=== PATIENT | male | born 1945 | race Caucasian/White ===

== ENCOUNTER 2020-05-23 05:18 | Day surgery (SDC) | payer MEDICARE, OTHER ==
[2020-05-23] MEDS ORDERED: Nozin Nasal Sanitizer NASBOTH ONE (06:00)
[2020-05-23] MEDS ORDERED: Lactated Ringers 1,000 ML IV SCH (06:00)
[2020-05-23] MEDS ORDERED: Bupivacaine 0.5% 50 ML MDV ONE (06:48)
[2020-05-23] MEDS ORDERED: Propofol 200 MG/20 ML SDV ONE ×2 (07:41→08:56)
[2020-05-23] MEDS ORDERED: Midazolam 1 MG/ML 2 ML SDV ONE ×2 (07:41→09:48)
[2020-05-23] MEDS ORDERED: fentaNYL 100 MCG/2 ML SDV ONE (07:41)
[2020-05-23] MEDS ORDERED: Bupivacaine 0.5% 30 ML SDV ONE (07:43)
--- NOTE | 2020-05-31 20:04 | OR ---
DATE OF PROCEDURE: 05/23/2020 SURGEON: Daniele Boogie MD PREOPERATIVE DIAGNOSES: 1. Impingement, right shoulder. 2. Rotator cuff tear, left shoulder. POSTOPERATIVE DIAGNOSES: 1. Degenerative labral tear. 2. Partial subscapularis tear. 3. Biceps tendinopathy. 4. Massive rotator cuff tear. PROCEDURES: 1. Arthroscopy, left shoulder, with debridement of labrum and biceps tendon. 2. Open rotator cuff repair, supraspinatus. ANESTHESIA: Scalene block with sedation. INDICATIONS: Mr. Skip White is a 74-year-old gentleman with history of chronic left shoulder pain. Pain has been getting progressively worse over the past few months. Having increasing difficulty with reaching and overhead activities. He is still quite active, but the pain has not responded to conservative treatment. He now presents for arthroscopy of the left shoulder for evaluation of the rotator cuff and possible repair. Risks, benefits, potential complications of procedure were discussed. DESCRIPTION OF PROCEDURE: After adequate anesthesia was obtained, patient was placed in a lateral decubitus position and secured with a souza bag positioner. The left shoulder and arm were then prepped and draped in a sterile fashion and 10 pounds of traction was placed in the shoulder traction unit. A standard posterior portal was established and initial placement of the trocar went extremely easily indicating deficiency in the posterior musculature and/or capsule. Evaluation of the glenohumeral joint revealed no significant articular cartilage damage to the glenoid or humeral head. The glenoid labrum did show degenerative tear with fraying more superior and anterior. Biceps tendon also showed some mild tendinopathy at its transition into the bicipital groove, but this was fairly mild. Subscapularis showed degenerative tear as well. This was a partial tear consisting of approximately 15% to 20% of the substance of the tendon, and decision was made not to proceed with any repair. Evaluation of rotator cuff revealed a massive tear with retraction of at least the posterior cuff, infraspinatus, back to the level of the glenoid. The portions of the supraspinous were near the level of the glenoid but did extend out a little more laterally. Shaver was placed in the anterior portal and the degenerative labrum was debrided along with a small area of fraying of the biceps. The scope was moved from the joint to the subacromial space. This further delineated the extent of the rotator cuff tear. A grasper was introduced and assessed the mobility of the remaining cuff. A portion of the anterior leaflet and good percentage of the supraspinatus could be mobilized out just beyond the level of the articular surface to the footprint. The infraspinatus could not be mobilized much at all. Elevator was introduced in an attempt to free any adhesions of the cuff in the subacromial space and between the cuff and the glenoid. After doing this, the supraspinatus could be mobilized out slightly more, but there was minimal change with the infraspinatus. Given that a portion of the cuff could be mobilized and the patient's activity level, it was decided to proceed with attempted repair of that portion of the tendon which was available. Due to the size, retraction, and location of the tear, decision was made to switch this over to an open procedure rather than arthroscopic. The scope was withdrawn and the lateral portal was extended down through the skin and deltoid was split in line with its fibers. Self-retaining retractor was placed. The deltoid was taken off the acromion for just a short distance to allow better visualization. The anterior portion of the cuff was identified and this was grasped with a clamp and again could be mobilized out to approximately the middle of the cuff footprint. An attempt was again made to mobilize the infraspinatus, but there was really no mobilization or cuff to work with at that point. A portion of the footprint was lightly decorticated with a rongeur. A FiberWire suture was placed into the edge of the tendon in a locking stitch and used to help mobilize the tendon and position it over the footprint. Two Mitek and Healix anchors were placed. All 4 limbs of the sutures were brought up through the edge of the tendon. The suture was then tied down from anterior to posterior securing the tendon onto the tuberosity. One of the sets of sutures through the tendon and the locking suture through the edge of the tendon were selected to place through a knotless anchor. A second tunnel was placed over the lateral footprint and the knotless anchor was secured in position and the remaining sutures were cut. This created repair of approximately 1/2 of the surface area of the footprint with the supraspinous. Deltoid was then repaired in a [id number] fashion with 0 Vicryl. Skin was closed with 2-0 Vicryl and 3-0 Monocryl. Steri-Strips were applied. Sterile dressing was placed. The patient tolerated the procedure well, there were no complications, taken from the operating room in stable condition. Daniele Boogie MD /[id number] MTDD
== END 2020-05-23 12:05 | disposition home or self-care (01) ==
LOC: JP.SDS 05:18
PROVIDERS: ATTEND Specialist
PROC: 0LM20ZZ Reattachment of Left Shoulder Tendon, Open Approach (ICD-10-PCS; principal; 2020-05-23)
DX: M75.112 Incomplete rotator cuff tear or rupture of left shoulder, not specified as traumatic (principal); M75.52 Bursitis of left shoulder; M25.811 Other specified joint disorders, right shoulder; G89.29 Other chronic pain; I10 Essential (primary) hypertension; E78.5 Hyperlipidemia, unspecified; E66.9 Obesity, unspecified; Z98.890 Other specified postprocedural states; Z68.29 Body mass index [BMI] 29.0-29.9, adult
CPT/HCPCS: 23412; 29822; A9270; C1713; J0690; J2250; J2704; J3010; J3490; J7060; J7120

== ENCOUNTER 2020-06-10 19:22 | Inpatient (IN) | payer MEDICARE, OTHER ==
[2020-06-10] MEDS ORDERED: Pantoprazole 40 MG Vial IVPUSH ONE (19:52)
--- NOTE | 2020-06-10 19:56 | EDM.PDOC ---
ED HPI GENERAL MEDICAL PROBLEM - General Chief Complaint: Gastrointestinal Problem Stated Complaint: MEDICAL Time Seen by Provider: 06/10/20 19:35 Source of Information: Reports: Patient, Family, Provider History Limitations: Reports: No Limitations - History of Present Illness INITIAL COMMENTS - FREE TEXT/NARRATIVE: 74-year-old male who has had dark tarry stools for the past 48 hours, presents with lightheadedness, weakness, shortness of breath with activity and continued dark stools. He has no pain. He had a shoulder surgery over 2 weeks ago and has been taking oxycodone and ibuprofen on a regular basis. Mild nausea but no vomiting, no hematemesis. His surgical hemoglobin was 16, he did go into the clinic today and had a hemoglobin checked and it was 10. Onset: Gradual Duration: Day(s): (Several days) Associated Symptoms: Reports: Malaise, Shortness of Breath (With activity), Weakness. Denies: Fever/Chills denies pain Pain Score (Numeric/FACES): 0 - Related Data Allergies Allergy/AdvReac Type Severity Reaction Status Date / Time No Known Allergies Allergy Verified 06/10/20 19:44 Home Meds: Home Meds Metoprolol Succinate [Toprol XL 50mg] 50 mg PO BID 12/16/19 [History] Testosterone Cypionate [Depo-Testosterone] 50 mg IM ASDIRECTED 12/16/19 [History] atorvaSTATin [Lipitor] 10 mg PO DAILY 12/16/19 [History] Aspirin 325 mg PO BID 05/23/20 [History] Doxazosin Mesylate [Cardura] 2 mg PO DAILY 06/10/20 [History] Past Medical History HEENT History: Reports: Impaired Vision Cardiovascular History: Reports: High Cholesterol, Hypertension Gastrointestinal History: Reports: Colon Polyp Musculoskeletal History: Reports: Fracture, Other (See Below) Other Musculoskeletal History: sciatica. right shoulder pain Oncologic (Cancer) History: Reports: Other (See Below) Other Oncologic History: basal cell on forehead Dermatologic History: Reports: Other (See Below) Other Dermatologic History: basal cell carcinoma - Infectious Disease History Infectious Disease History: Reports: Measles, Mumps - Past Surgical History Head Surgeries/Procedures: Reports: None HEENT Surgical History: Reports: Tonsillectomy Cardiovascular Surgical History: Reports: Other (See Below) Other Cardiovascular Surgeries/Procedures: angiogram GI Surgical History: Reports: Colonoscopy Musculoskeletal Surgical History: Reports: Hip Replacement Other Musculoskeletal Surgeries/Procedures:: bilateral hip replacement. s/p L shoulder scope 05/23/20 Dermatological Surgical History: Reports: Skin Biopsy Social & Family History - Caffeine Use Caffeine Use: Reports: Coffee ED ROS GENERAL - Review of Systems Review Of Systems: See Below Constitutional: Reports: Malaise, Decreased Appetite. Denies: Fever, Chills HEENT: Reports: No Symptoms Respiratory: Reports: Shortness of Breath Cardiovascular: Denies: Chest Pain GI/Abdominal: Reports: Melena. Denies: Abdominal Pain, Nausea, Vomiting : Reports: No Symptoms Musculoskeletal: Reports: Other (Left shoulder discomfort from recent surgery, is improving) Skin: Denies: Pallor, Bruising Neurological: Reports: Weakness ED EXAM, GENERAL - Physical Exam Exam: See Below Exam Limited By: No Limitations General Appearance: Alert, No Apparent Distress Eye Exam: Bilateral Eye: Other (Mildly pale conjunctiva, otherwise normal) Head: Atraumatic Neck: Supple, Non-Tender Respiratory/Chest: Lungs Clear Cardiovascular: Regular Rate, Rhythm, Tachycardia GI/Abdominal: Normal Bowel Sounds, Soft, Non-Tender Neurological: Alert, Oriented Psychiatric: Normal Affect, Normal Mood Skin Exam: Warm, Dry, Other (No significant pallor or diaphoresis) Course - Vital Signs Last Recorded V/S: Last Vital Signs Temp 98.2 F 06/10/20 22:07 Pulse 106 H 06/10/20 22:07 Resp 20 06/10/20 22:07 BP 140/71 06/10/20 22:07 Pulse Ox 98 06/10/20 22:07 - Orders/Labs/Meds Orders: Active Orders 24 hr Category Date Time Status PATIENT RETYPE [BBK] Stat Lab 06/10/20 19:58 Results RED BLOOD CELLS LP [BBK] Stat Lab 06/10/20 19:58 Results TYPE AND SCREEN [BBK] Stat Lab 06/10/20 19:58 Results Medication Orders Sodium Chloride (Normal Saline) 1,000 mls @ 50 mls/hr IV ASDIRECTED [facility] Labs: Laboratory Tests 06/10/20 06/10/20 06/10/20 Range/Units 19:58 19:59 19:59 WBC 12.0 H (4.5-11.0) K/uL RBC 2.61 L (4.30-5.90) M/uL Hgb 8.8 L (12.0-15.0) g/dL Hct 24.3 L (40.0-54.0) % MCV 93 (80-98) fL MCH 34 H (27-31) pg MCHC 36 (32-36) % Plt Count 412 H (150-400) K/uL Neut % (Auto) 79 H (36-66) % Lymph % (Auto) 14 L (24-44) % [place] % (Auto) 6 (2-6) % Eos % (Auto) 0 L (2-4) % Baso % (Auto) 0 (0-1) % PT 12.0 (9.5-12.0) sec INR 1.10 (0.80-1.20) Blood Type A POSITIVE Gel Antibody Screen Negative Crossmatch See Detail Crossmatch IS Only See Detail Meds: Medications Generic Name Dose Route Start Last Admin Trade Name Freq PRN Reason Stop Dose Admin Sodium Chloride 1,000 mls @ 50 mls/hr 06/10/20 21:15 Normal Saline IV ASDIRECTED AASHISH Discontinued Medications Generic Name Dose Route Start Last Admin Trade Name Freq PRN Reason Stop Dose Admin Octreotide Acetate 50 mcg 06/10/20 20:24 06/10/20 20:54 Sandostatin IVPUSH 06/10/20 20:25 50 mcg ONETIME ONE Administration Pantoprazole Sodium 40 mg 06/10/20 19:52 06/10/20 20:17 Protonix Iv IVPUSH 06/10/20 19:53 40 mg ONETIME ONE Administration - Re-Assessments/Exams Free Text/Narrative Re-Assessment/Exam: 06/10/20 19:55 This patient is likely becoming more anemic as his GI bleed continues. He will be given 40 mg of IV Protonix, 2 units of RBCs typed and crossed and a CBC and INR ordered as well as a coronavirus screen as he will likely need an upper GI and possibly colonoscopy in the next 24 hours. 1 dose of octreotide will be given if his hemoglobin has dropped significantly from 10 which was drawn around noon today. 06/10/20 20:30 Hemoglobin is 8.8, 50 mcg of octreotide was given. Dr. Blankenship was consulted to see the patient for admission and transfusion should be considered. He will be admitted for GI bleed and blood loss anemia. Departure - Departure Time of Disposition: 21:42 Disposition: Admitted As Inpatient 66 Clinical Impression: GI bleed due to NSAIDs, Acute blood loss anemia - Discharge Information Sepsis Event Note (ED) - Focused Exam Vital Signs: Vital Signs Temp Pulse Resp BP Pulse Ox 06/10/20 20:21 111 H 20 141/69 H 98 06/10/20 19:54 98.4 F 113 H 12 148/71 H 92 L 06/10/20 19:28 98.4 F 113 H 12 148/71 H 92 L - My Orders Last 24 Hours: My Active Orders 06/10/20 19:58 PATIENT RETYPE [BBK] Stat RED BLOOD CELLS LP [BBK] Stat TYPE AND SCREEN [BBK] Stat - Assessment/Plan Last 24 Hours: My Active Orders 06/10/20 19:58 PATIENT RETYPE [BBK] Stat RED BLOOD CELLS LP [BBK] Stat TYPE AND SCREEN [BBK] Stat
[2020-06-10] MEDS ORDERED: Octreotide 100 MCG/ML SDV IVPUSH ONE ×2 (20:21→20:24)
[2020-06-11] MEDS: Sodium Chloride 0.9% 1,000 ML IV SCH ×3 (00:59→21:08)
[2020-06-11] MEDS ORDERED: Propofol 200 MG/20 ML SDV ONE (06:44)
[2020-06-11] MEDS ORDERED: fentaNYL 100 MCG/2 ML SDV ONE (06:44)
[2020-06-11] MEDS: Pantoprazole 40 MG Tab.CR PO SCH ×2 (11:47→16:49)
[2020-06-12] MEDS: Pantoprazole 40 MG Tab.CR PO SCH ×2 (07:47→17:36)
[2020-06-12] MEDS ORDERED: Bisacodyl 5 MG Tab PO ONE ×2 (11:00→17:00)
[2020-06-12] MEDS ORDERED: Polyethylene Glycol 3350 Powder 238 GM Bot PO ONE (14:00)
--- NOTE | 2020-06-12 16:17 | PCM.HP.2 ---
H&P History of Present Illness - General Date of Service: 06/10/20 Admit Problem/Dx: Admission Diagnosis/Problem Admission Diagnosis/Problem Anemia Source of Information: Patient, EMS History Limitations: Reports: No Limitations - History of Present Illness Initial Comments - Free Text/Narative: This is a repeat dictation as the initial H&P was somehow lost. This is a 74-year-old male who came to the office this morning complaining of weakness with respiratory problems. This was a sudden onset 2 days ago. He had another spell in the morning and came into the office. The hemoglobin at the office was 10.7 which was a significant drop from 16 when he had surgery 3 weeks ago. On physical examination he had no abnormal findings in his abdomen. this afternoon he had another episode of weakness and shortness of breath and sweating and came into the emergency room. After evaluation of the emergency room he was found to have a hemoglobin of 7.9. I was called to admit him and evaluate the cause of his blood loss. He has been taking aspirin as well as ibuprofen. I told him not to take any aspirin when I saw him this morning when he got home he took another pill of aspirin. Onset of Symptoms: Reports: Sudden denies pain Pain Score (Numeric/FACES): 0 - Related Data Allergies/Adverse Reactions: Allergies Allergy/AdvReac Type Severity Reaction Status Date / Time No Known Allergies Allergy Verified 06/10/20 19:44 Home Medications: Home Meds Metoprolol Succinate [Toprol XL 50mg] 50 mg PO BID 12/16/19 [History] Testosterone Cypionate [Depo-Testosterone] 50 mg IM ASDIRECTED 12/16/19 [History] atorvaSTATin [Lipitor] 10 mg PO DAILY 12/16/19 [History] Aspirin 325 mg PO BID 05/23/20 [History] Doxazosin Mesylate [Cardura] 2 mg PO DAILY 06/10/20 [History] Past Medical History HEENT History: Reports: Impaired Vision Cardiovascular History: Reports: High Cholesterol, Hypertension Gastrointestinal History: Reports: Colon Polyp Musculoskeletal History: Reports: Fracture, Other (See Below) Other Musculoskeletal History: sciatica. right shoulder pain Hematologic History: Reports: Anticoagulation Therapy, Other (See Below) Other Hematologic History: pt takes 325 aspirin bid Oncologic (Cancer) History: Reports: Other (See Below) Other Oncologic History: basal cell on forehead Dermatologic History: Reports: Other (See Below) Other Dermatologic History: basal cell carcinoma - Infectious Disease History Infectious Disease History: Reports: Measles, Mumps - Past Surgical History Head Surgeries/Procedures: Reports: None HEENT Surgical History: Reports: Tonsillectomy Cardiovascular Surgical History: Reports: Other (See Below) Other Cardiovascular Surgeries/Procedures: angiogram GI Surgical History: Reports: Colonoscopy Musculoskeletal Surgical History: Reports: Hip Replacement Other Musculoskeletal Surgeries/Procedures:: bilateral hip replacement. s/p L shoulder scope 05/23/20 Dermatological Surgical History: Reports: Skin Biopsy Social & Family History - Family History Family Medical History: No Pertinent Family History - Tobacco Use Tobacco Use Status *Q: Never Tobacco User Second Hand Smoke Exposure: No - Caffeine Use Caffeine Use: Reports: Coffee - Alcohol Use Days Per Week of Alcohol Use: 5 Number of Drinks Per Day: 2 Total Drinks Per Week: 10 Date of Last Drink: 06/08/20 Time of Last Drink: 18:30 - Recreational Drug Use Recreational Drug Use: No H&P Review of Systems - Review of Systems: Review Of Systems: See Below General: Reports: Weakness, Diaphoresis HEENT: Reports: No Symptoms Pulmonary: Reports: Shortness of Breath Cardiovascular: Reports: No Symptoms Gastrointestinal: Reports: No Symptoms Genitourinary: Reports: No Symptoms Musculoskeletal: Reports: No Symptoms Skin: Reports: No Symptoms Psychiatric: Reports: No Symptoms Neurological: Reports: No Symptoms Hematologic/Lymphatic: Reports: No Symptoms Immunologic: Reports: No Symptoms Exam - Exam Exam: See Below - Vital Signs Vital Signs: Last Vital Signs Temp 98.3 F 06/12/20 15:16 Pulse 82 06/12/20 15:16 Resp 16 06/12/20 15:16 BP 139/56 L 06/12/20 15:16 Pulse Ox 98 06/12/20 11:42 Weight: 210 lb 6.4 oz - Exam General: Alert, Oriented, 4 HEENT: PERRLA, Hearing Intact, Mucosa Moist & [place], Nares Patent, Normal Nasal Septum, Posterior Pharynx Clear, Conjunctiva Clear, EOMI, EACs Clear, TMs Clear Neck: Supple, Trachea Midline, 2 Lungs: Clear to Auscultation, Normal Respiratory Effort Cardiovascular: Regular Rate, Regular Rhythm GI/Abdominal Exam: Normal Bowel Sounds, Soft, Non-Tender, No Organomegaly, No Distention, No Abnormal Bruit, No Mass, Pelvis Stable Extremities: Normal Inspection, Normal Range of Motion, Non-Tender, No Pedal Edema, Normal Capillary Refill Peripheral Pulses: 1+: Carotid (L), Carotid (R), Radial (L), Radial (R) Skin: Warm, Dry, Intact Neurological: Cranial Nerves Intact, Reflexes Equal Bilateral Neuro Extensive - Mental Status: Alert, Oriented x3, Normal Mood/Affect, Normal Cognition Neuro Extensive - Motor, Sensory, Reflexes: CN II-XII Intact, Normal Gait, Normal Reflexes DTR: 1+: Bicep (L), Bicep (R) Psychiatric: Alert, Normal Affect, Normal Mood - Patient Data Lab Results Last 24 hrs: Laboratory Results - last 24 hr 06/10/20 06/11/20 06/12/20 Range/Units 19:58 17:10 04:53 WBC 10.0 8.7 (4.5-11.0) K/uL RBC 2.88 L 2.50 L (4.30-5.90) M/uL Hgb 9.0 L 7.7 L (12.0-15.0) g/dL Hct 26.5 L 23.5 L (40.0-54.0) % MCV 92 94 (80-98) fL MCH 31 31 (27-31) pg MCHC 34 33 (32-36) % Plt Count 395 369 (150-400) K/uL Neut % (Auto) 57 58 (36-66) % Lymph % (Auto) 32 30 (24-44) % [place] % (Auto) 10 H 9 H (2-6) % Eos % (Auto) 1 L 2 (2-4) % Baso % (Auto) 1 0 (0-1) % Blood Type A POSITIVE Gel Antibody Screen Negative Crossmatch See Detail Crossmatch IS Only See Detail 06/12/20 Range/Units 11:04 WBC (4.5-11.0) K/uL RBC (4.30-5.90) M/uL Hgb 8.0 L (12.0-15.0) g/dL Hct 24.6 L (40.0-54.0) % MCV (80-98) fL MCH (27-31) pg MCHC (32-36) % Plt Count (150-400) K/uL Neut % (Auto) (36-66) % Lymph % (Auto) (24-44) % [place] % (Auto) (2-6) % Eos % (Auto) (2-4) % Baso % (Auto) (0-1) % Blood Type Gel Antibody Screen Crossmatch Crossmatch IS Only Result Diagrams: 06/12/20 11:04 Sepsis Event Note - Evaluation Sepsis Screening Result: No Definite Risk - Focused Exam Vital Signs: Vital Signs Temp Temp Pulse Resp BP BP Pulse Ox 06/12/20 15:16 98.3 F 82 16 139/56 L 06/12/20 14:45 98.2 F 82 16 138/59 L 06/12/20 14:15 98.3 F 80 16 141/56 H 06/12/20 13:47 98.4 F 84 15 136/60 06/12/20 13:24 98.4 F 85 16 150/56 H 06/12/20 13:09 98.7 F 97 160/66 H 06/12/20 13:00 98.4 F 85 136/61 06/12/20 12:50 97.8 F 83 16 141/64 H 06/12/20 11:42 97.9 F 82 16 147/59 H 98 06/12/20 07:19 98.1 F 78 16 149/61 H 98 *Q Meaningful Use (ADM) - VTE *Q VTE Pharmacological Contraindications *Q: Active Hemorrhage Problem List Initiated/Reviewed/Updated: Yes Orders Last 24hrs: Active Orders 24 hr Category Date Time Status Verify Patient Consent Obtain [RC] ASDIRECTED Care 06/12/20 11:00 Active NPO After Midnight [Nothing per Oral After Midnight Diet 06/13/20 Breakfast Active Diet] [DIET] UGI w Small Bowel wo Air [CR] Routine Exams 06/13/20 07:00 Ordered CBC WITH AUTO DIFF [HEME] DAILY Lab 06/13/20 05:11 Ordered CBC WITH AUTO DIFF [HEME] DAILY Lab 06/14/20 05:11 Ordered COMPREHENSIVE METABOLIC PN,CMP [CHEM] Routine Lab 06/12/20 16:00 Ordered HEMOGLOBIN/HEMATOCRIT,HH [HEME] Routine Lab 06/12/20 20:00 Ordered bisacodyL [Dulcolax] Med 06/12/20 17:00 Once 10 mg PO ONETIME ONE Transfuse Red Blood Cells [COMM] Routine Oth 06/12/20 10:09 Ordered Medication Orders Bisacodyl (Dulcolax) 10 mg PO ONETIME ONE Stop: 06/12/20 17:01 Sodium Chloride (Normal Saline) 1,000 mls @ 50 mls/hr IV ASDIRECTED [facility] Admin: 06/11/20 21:08 Dose: 50 mls/hr Documented by: Infusion: 06/11/20 21:08 Dose: 50 mls/hr Documented by: Admin: 06/11/20 14:17 Dose: 50 mls/hr Documented by: Infusion: 06/11/20 14:17 Dose: 50 mls/hr Documented by: Admin: 06/11/20 00:59 Dose: 50 mls/hr Documented by: SCARLETT Pantoprazole Sodium (Protonix) 40 mg PO BIDAC [facility] Admin: 06/12/20 07:47 Dose: 40 mg Documented by: Admin: 06/11/20 16:49 Dose: 40 mg Documented by: Admin: 06/11/20 11:47 Dose: Not Given Documented by: SAM Assessment/Plan Comment:: Assessment/plan: #1. GI blood loss with anemia: I will give him 1 unit of blood now and will do an EGD in the morning. #2. Hypertension: His blood pressure is stable at present time slightly elevated above what closely but not give medication at the present time. #3. Status post left shoulder surgery: This is not an acute problem at the present time. - Mortality Measure Prognosis:: Good
--- NOTE | 2020-06-12 16:28 | PCM.PN ---
- General Info Date of Service: 06/11/20 Subjective Update: He did not get his blood transfusion last night because of antibodies and blood transfusion is pending. He has no complaints. Functional Status: Reports: Pain Controlled - Review of Systems General: Reports: Weakness HEENT: Reports: No Symptoms Pulmonary: Reports: No Symptoms Cardiovascular: Reports: No Symptoms Gastrointestinal: Reports: No Symptoms Genitourinary: Reports: No Symptoms Musculoskeletal: Reports: No Symptoms Skin: Reports: No Symptoms Neurological: Reports: No Symptoms Psychiatric: Reports: No Symptoms - Patient Data Vitals - Most Recent: Last Vital Signs Temp 98.3 F 06/12/20 15:16 Pulse 82 06/12/20 15:16 Resp 16 06/12/20 15:16 BP 139/56 L 06/12/20 15:16 Pulse Ox 98 06/12/20 11:42 Weight - Most Recent: 210 lb 6.4 oz I&O - Last 24 Hours: Intake & Output 06/12/20 06/12/20 06/12/20 06:59 14:59 22:59 Intake Total 1445 1100 70 Balance 1445 1100 70 Lab Results Last 24 Hours: Laboratory Results - last 24 hr 06/10/20 06/11/20 06/12/20 Range/Units 19:58 17:10 04:53 WBC 10.0 8.7 (4.5-11.0) K/uL RBC 2.88 L 2.50 L (4.30-5.90) M/uL Hgb 9.0 L 7.7 L (12.0-15.0) g/dL Hct 26.5 L 23.5 L (40.0-54.0) % MCV 92 94 (80-98) fL MCH 31 31 (27-31) pg MCHC 34 33 (32-36) % Plt Count 395 369 (150-400) K/uL Neut % (Auto) 57 58 (36-66) % Lymph % (Auto) 32 30 (24-44) % [place] % (Auto) 10 H 9 H (2-6) % Eos % (Auto) 1 L 2 (2-4) % Baso % (Auto) 1 0 (0-1) % Blood Type A POSITIVE Gel Antibody Screen Negative Crossmatch See Detail Crossmatch IS Only See Detail 06/12/20 Range/Units 11:04 WBC (4.5-11.0) K/uL RBC (4.30-5.90) M/uL Hgb 8.0 L (12.0-15.0) g/dL Hct 24.6 L (40.0-54.0) % MCV (80-98) fL MCH (27-31) pg MCHC (32-36) % Plt Count (150-400) K/uL Neut % (Auto) (36-66) % Lymph % (Auto) (24-44) % [place] % (Auto) (2-6) % Eos % (Auto) (2-4) % Baso % (Auto) (0-1) % Blood Type Gel Antibody Screen Crossmatch Crossmatch IS Only Med Orders - Current: Current Medications Bisacodyl (Dulcolax) 10 mg PO ONETIME ONE Stop: 06/12/20 17:01 Sodium Chloride (Normal Saline) 1,000 mls @ 50 mls/hr IV ASDIRECTED [facility] Last Admin: 06/11/20 21:08 Dose: 50 mls/hr Documented by: Pantoprazole Sodium (Protonix) 40 mg PO BIDAC [facility] Last Admin: 06/12/20 07:47 Dose: 40 mg Documented by: Discontinued Medications Bisacodyl (Dulcolax) 10 mg PO ONETIME ONE Stop: 06/12/20 11:01 Last Admin: 06/12/20 15:19 Dose: 10 mg Documented by: Fentanyl (Sublimaze) Confirm Administered Dose 100 mcg .ROUTE .STK-MED ONE Stop: 06/11/20 06:45 Octreotide Acetate (Sandostatin) 50 mcg IVPUSH ONETIME ONE Stop: 06/10/20 20:25 Last Admin: 06/10/20 20:54 Dose: 50 mcg Documented by: Pantoprazole Sodium (Protonix Iv) 40 mg IVPUSH ONETIME ONE Stop: 06/10/20 19:53 Last Admin: 06/10/20 20:17 Dose: 40 mg Documented by: Polyethylene Glycol (Miralax) 238 gm PO ONETIME ONE Stop: 06/12/20 14:01 Last Admin: 06/12/20 15:17 Dose: 238 gm Documented by: Propofol (Diprivan 20 Ml) Confirm Administered Dose 200 mg .ROUTE .STK-MED ONE Stop: 06/11/20 06:45 - Exam General: Alert, Oriented Neck: Supple Lungs: Clear to Auscultation, Normal Respiratory Effort Cardiovascular: Regular Rate, Regular Rhythm GI/Abdominal Exam: Normal Bowel Sounds, Soft, Non-Tender, No Organomegaly, No Distention, No Abnormal Bruit, No Mass, Pelvis Stable Extremities: Normal Inspection, Normal Range of Motion, Non-Tender, No Pedal Edema, Normal Capillary Refill Peripheral Pulses: 1+: Radial (L), Radial (R) Skin: Warm, Dry, Intact Psy/Mental Status: Alert, Normal Affect, Normal Mood Sepsis Event Note - Evaluation Sepsis Screening Result: No Definite Risk - Focused Exam Vital Signs: Vital Signs Temp Temp Pulse Resp BP BP Pulse Ox 06/12/20 15:16 98.3 F 82 16 139/56 L 06/12/20 14:45 98.2 F 82 16 138/59 L 06/12/20 14:15 98.3 F 80 16 141/56 H 06/12/20 13:47 98.4 F 84 15 136/60 06/12/20 13:24 98.4 F 85 16 150/56 H 06/12/20 13:09 98.7 F 97 160/66 H 06/12/20 13:00 98.4 F 85 136/61 06/12/20 12:50 97.8 F 83 16 141/64 H 06/12/20 11:42 97.9 F 82 16 147/59 H 98 06/12/20 07:19 98.1 F 78 16 149/61 H 98 - Problem List Review Problem List Initiated/Reviewed/Updated: Yes - My Orders Last 24 Hours: My Active Orders 06/12/20 10:09 Transfuse Red Blood Cells [COMM] Routine 06/12/20 11:00 Verify Patient Consent Obtain [RC] ASDIRECTED 06/12/20 17:00 bisacodyL [Dulcolax] 10 mg PO ONETIME ONE 06/12/20 20:00 COMPREHENSIVE METABOLIC PN,CMP [CHEM] Routine HEMOGLOBIN/HEMATOCRIT,HH [HEME] Routine 06/13/20 05:11 CBC WITH AUTO DIFF [HEME] DAILY 06/13/20 07:00 UGI w Small Bowel wo Air [CR] Routine 06/13/20 Breakfast NPO After Midnight [Nothing per Oral After Midnight Diet] [DIET] 06/14/20 05:11 CBC WITH AUTO DIFF [HEME] DAILY - Plan Plan:: Assessment/plan: #1. GI blood loss with anemia: He did have antibodies in his blood and his blood will be given this morning. 1 PM repeat grounds showed hemoglobin at 9.0 after 1 unit of packed cells. I will repeat the hemoglobin in the morning. #2. Hypertension: His blood pressure is stable at present time slightly elevated above what closely but not give medication at the present time. #3. Status post left shoulder surgery: This is not an acute problem at the present time.
--- NOTE | 2020-06-12 16:34 | PCM.PN ---
- General Info Date of Service: 06/12/20 Functional Status: Reports: Pain Controlled - Review of Systems General: Reports: Weakness HEENT: Reports: No Symptoms Pulmonary: Reports: No Symptoms Cardiovascular: Reports: No Symptoms Gastrointestinal: Reports: No Symptoms Genitourinary: Reports: No Symptoms Musculoskeletal: Reports: No Symptoms Skin: Reports: No Symptoms Neurological: Reports: No Symptoms - Patient Data Vitals - Most Recent: Last Vital Signs Temp 98.3 F 06/12/20 15:16 Pulse 82 06/12/20 15:16 Resp 16 06/12/20 15:16 BP 139/56 L 06/12/20 15:16 Pulse Ox 98 06/12/20 11:42 Weight - Most Recent: 210 lb 6.4 oz I&O - Last 24 Hours: Intake & Output 06/12/20 06/12/20 06/12/20 06:59 14:59 22:59 Intake Total 1445 1100 70 Balance 1445 1100 70 Lab Results Last 24 Hours: Laboratory Results - last 24 hr 06/10/20 06/11/20 06/12/20 Range/Units 19:58 17:10 04:53 WBC 10.0 8.7 (4.5-11.0) K/uL RBC 2.88 L 2.50 L (4.30-5.90) M/uL Hgb 9.0 L 7.7 L (12.0-15.0) g/dL Hct 26.5 L 23.5 L (40.0-54.0) % MCV 92 94 (80-98) fL MCH 31 31 (27-31) pg MCHC 34 33 (32-36) % Plt Count 395 369 (150-400) K/uL Neut % (Auto) 57 58 (36-66) % Lymph % (Auto) 32 30 (24-44) % [place] % (Auto) 10 H 9 H (2-6) % Eos % (Auto) 1 L 2 (2-4) % Baso % (Auto) 1 0 (0-1) % Blood Type A POSITIVE Gel Antibody Screen Negative Crossmatch See Detail Crossmatch IS Only See Detail 06/12/20 Range/Units 11:04 WBC (4.5-11.0) K/uL RBC (4.30-5.90) M/uL Hgb 8.0 L (12.0-15.0) g/dL Hct 24.6 L (40.0-54.0) % MCV (80-98) fL MCH (27-31) pg MCHC (32-36) % Plt Count (150-400) K/uL Neut % (Auto) (36-66) % Lymph % (Auto) (24-44) % [place] % (Auto) (2-6) % Eos % (Auto) (2-4) % Baso % (Auto) (0-1) % Blood Type Gel Antibody Screen Crossmatch Crossmatch IS Only Med Orders - Current: Current Medications Bisacodyl (Dulcolax) 10 mg PO ONETIME ONE Stop: 06/12/20 17:01 Sodium Chloride (Normal Saline) 1,000 mls @ 50 mls/hr IV ASDIRECTED [facility] Last Admin: 06/11/20 21:08 Dose: 50 mls/hr Documented by: Pantoprazole Sodium (Protonix) 40 mg PO BIDAC [facility] Last Admin: 06/12/20 07:47 Dose: 40 mg Documented by: Discontinued Medications Bisacodyl (Dulcolax) 10 mg PO ONETIME ONE Stop: 06/12/20 11:01 Last Admin: 06/12/20 15:19 Dose: 10 mg Documented by: Fentanyl (Sublimaze) Confirm Administered Dose 100 mcg .ROUTE .STK-MED ONE Stop: 06/11/20 06:45 Octreotide Acetate (Sandostatin) 50 mcg IVPUSH ONETIME ONE Stop: 06/10/20 20:25 Last Admin: 06/10/20 20:54 Dose: 50 mcg Documented by: Pantoprazole Sodium (Protonix Iv) 40 mg IVPUSH ONETIME ONE Stop: 06/10/20 19:53 Last Admin: 06/10/20 20:17 Dose: 40 mg Documented by: Polyethylene Glycol (Miralax) 238 gm PO ONETIME ONE Stop: 06/12/20 14:01 Last Admin: 06/12/20 15:17 Dose: 238 gm Documented by: Propofol (Diprivan 20 Ml) Confirm Administered Dose 200 mg .ROUTE .STK-MED ONE Stop: 06/11/20 06:45 - Exam General: Alert, Oriented HEENT: Pupils Equal, Pupils Reactive, EOMI, Mucous Membr. Moist/[place] Neck: Supple Lungs: Clear to Auscultation, Normal Respiratory Effort Cardiovascular: Regular Rate, Regular Rhythm GI/Abdominal Exam: Normal Bowel Sounds, Soft, Non-Tender, No Organomegaly, No Distention, No Abnormal Bruit, No Mass, Pelvis Stable Extremities: Normal Inspection, Normal Range of Motion, Non-Tender, No Pedal Edema, Normal Capillary Refill Peripheral Pulses: 1+: Radial (L), Radial (R) Neurological: No New Focal Deficit Psy/Mental Status: Alert, Normal Affect, Normal Mood Sepsis Event Note - Evaluation Sepsis Screening Result: No Definite Risk - Focused Exam Vital Signs: Vital Signs Temp Temp Pulse Resp BP BP Pulse Ox 06/12/20 15:16 98.3 F 82 16 139/56 L 06/12/20 14:45 98.2 F 82 16 138/59 L 06/12/20 14:15 98.3 F 80 16 141/56 H 06/12/20 13:47 98.4 F 84 15 136/60 06/12/20 13:24 98.4 F 85 16 150/56 H 06/12/20 13:09 98.7 F 97 160/66 H 06/12/20 13:00 98.4 F 85 136/61 06/12/20 12:50 97.8 F 83 16 141/64 H 06/12/20 11:42 97.9 F 82 16 147/59 H 98 06/12/20 07:19 98.1 F 78 16 149/61 H 98 - Problem List Review Problem List Initiated/Reviewed/Updated: Yes - My Orders Last 24 Hours: My Active Orders 06/12/20 10:09 Transfuse Red Blood Cells [COMM] Routine 06/12/20 11:00 Verify Patient Consent Obtain [RC] ASDIRECTED 06/12/20 17:00 bisacodyL [Dulcolax] 10 mg PO ONETIME ONE 06/12/20 20:00 COMPREHENSIVE METABOLIC PN,CMP [CHEM] Routine HEMOGLOBIN/HEMATOCRIT,HH [HEME] Routine 06/13/20 05:11 CBC WITH AUTO DIFF [HEME] DAILY 06/13/20 07:00 UGI w Small Bowel wo Air [CR] Routine 06/13/20 Breakfast NPO After Midnight [Nothing per Oral After Midnight Diet] [DIET] 06/14/20 05:11 CBC WITH AUTO DIFF [HEME] DAILY - Plan Plan:: Assessment/plan: #1. GI blood loss with anemia: He did have antibodies in his blood. His hemoglobin this morning was 7.7 and repeat was 8. Another unit of blood will be given this afternoon. I will repeat a hemoglobin at 8 PM also do aa CMP.I will repeat the hemoglobin in the morning. I feel that it is not possible for him to go home today as he initially wanted to. I scheduled him for colonoscopy in the morning and then do a upper GI with small bowel follow-through later during the day. I will give more blood if he continues to bleed. He did have an ulcer in the stomach but I feel that this was not the source of the bleeding is most likely in the small bowel or the colon and more likely the small bowel. A capsule endoscopy would be another option but this is take more time and he continues to bleed. A reticulocyte count is also pending. #2. Hypertension: His blood pressure is stable at present time slightly elevated above what closely but not give medication at the present time. #3. Status post left shoulder surgery: This is not an acute problem at the present time.
[2020-06-13] MEDS ORDERED: fentaNYL 100 MCG/2 ML SDV ONE (07:00)
[2020-06-13] MEDS ORDERED: Propofol 200 MG/20 ML SDV ONE ×2 (07:01→07:28)
[2020-06-13] MEDS ORDERED: Midazolam 1 MG/ML 2 ML SDV ONE (07:01)
[2020-06-13] MEDS: Pantoprazole 40 MG Tab.CR PO SCH (08:28)
--- NOTE | 2020-06-13 08:54 | PROC ---
DATE OF PROCEDURE: 06/11/2020 SURGEON: Daniele Blankenship MD INDICATIONS: Christopher is a 74-year-old male who was found to have GI blood loss. Three weeks ago, his hemoglobin was 16.3. Yesterday, at the office, it was 10.7. He had another episode of extreme weakness and sweating. He came into the emergency room, and the hemoglobin then was 8.8. This morning was 9.7. We tried to give him a transfusion of blood yesterday, but he had antibodies and was unable to transfuse blood until we get the blood that would not cause trouble. He comes in for an esophageal gastroduodenoscopy. The risks and benefits were explained and was taken to the OR. Anesthesia was given by nurse electric motor winder. During procedure, we used 100 mcg of fentanyl and 90 mg of propofol. PROCEDURE IN DETAIL: The Olympus 180 scope was used, was placed into the pharynx, and advanced into the esophagus without problem. The GE junction was identified, went into the end of the stomach, and then the pylorus was identified. At the pre-pyloric area noted 2 ulcerations that were evident, and pictures were taken of this. The tube was advanced into the small intestine and into the first and second part of the small intestine. The duodenum revealed no abnormality. The tube was then brought back into the stomach. Air was insufflated. We had good observation of the greater and lesser curvature. The tube was retroflexed into the fundus, which revealed no abnormality. The air was withdrawn from the stomach. The GE junction was identified. There was no significant hiatal hernia. The remainder of the esophagus was unremarkable. The vocal cords moved symmetrically. No obvious pathology noted. PREOPERATIVE DIAGNOSIS: Gastrointestinal blood loss. POSTOPERATIVE DIAGNOSIS: Gastric ulcer. This was not biopsied due to the risk of increased bleeding. We will do further evaluations to identify other sources of the blood loss. Daniele Blankenship MD /[id number]
--- NOTE | 2020-06-13 08:54 | PROC ---
DATE OF PROCEDURE: 06/13/2020 SURGEON: Daniele Blankenship MD INDICATIONS: This is a 74-year-old male, was admitted for GI blood loss and the EGD yesterday showed an ulcer in the stomach, but did not appear to be the source of the bleeding. We then scheduled him for a colonoscopy. The risks and benefits were explained to the patient and was taken to the OR. PROCEDURE IN DETAIL: Anesthesia was given by nurse cytogenetic technologist. During the procedure, we used 280 mg of propofol, 100 mcg of fentanyl, and 2 mg of Versed. The Olympus 180L scope was used. It was placed into the rectum and advanced under direct vision. We did get to the cecum with some difficulty. Picture was taken of the cecum area. Upon slow retraction of the tube noted no lesions or ulceration, no abnormality throughout the entire colon from the cecum to the rectum. The tube was removed. The patient tolerated the procedure well. PREOPERATIVE DIAGNOSIS: Gastrointestinal blood loss. POSTOPERATIVE DIAGNOSIS: Normal colon from cecum to rectum. The small intestine must be the source of the bleeding. Daniele Blankenship MD /[id number]
[2020-06-13] MEDS ORDERED: Barium Sulfate 98% Powder for Susp 340 GM Bottle PO PRN (10:07)
--- NOTE | 2020-06-13 11:59 | CR ---
UGI w Small Bowel wo Air CLINICAL HISTORY: GI bleed FINDINGS: Pulmonary film shows some scattered air-filled loops of small bowel and as well as some colon. Patient is status post recent colonoscopy. Patient swallowed thin barium without difficulty. The esophagus has a normal contour. There is no hiatal hernia. There is mild prominence of the gastric mucosa. This may be exaggerated by lack of distention. A gastric ulcer was described on recent endoscopy. This is not obvious on the current study. Duodenal bulb has normal contour. There is some prominence of the mucosal folds in the post bulbar duodenum. No ulceration is identified. Small bowel follow-through: Sequential images of the small bowel were obtained following barium meal. Small bowel mucosal pattern is otherwise normal throughout. There was some separation of the ileal loops. On fluoroscopic compression these were pliable and freely mobile. No persistent filling defects are identified. IMPRESSION: Mild prominence of the gastric mucosa and post bulbar duodenal mucosal folds. No ulceration is identified. There is some separation of the distal small bowel loops in the right lower quadrant without focal mass or persistent filling defect
--- NOTE | 2020-06-13 14:37 | PCM.PN ---
- General Info Date of Service: 06/13/20 Functional Status: Reports: Pain Controlled - Review of Systems General: Reports: No Symptoms HEENT: Reports: No Symptoms Pulmonary: Reports: No Symptoms Cardiovascular: Reports: No Symptoms Gastrointestinal: Reports: No Symptoms Genitourinary: Reports: No Symptoms Musculoskeletal: Reports: No Symptoms Skin: Reports: No Symptoms Neurological: Reports: No Symptoms Psychiatric: Reports: No Symptoms - Patient Data Vitals - Most Recent: Last Vital Signs Temp 97.5 F 06/13/20 11:15 Pulse 81 06/13/20 11:15 Resp 16 06/13/20 11:15 BP 137/61 06/13/20 11:15 Pulse Ox 98 06/13/20 11:15 Weight - Most Recent: 210 lb 6.406 oz I&O - Last 24 Hours: Intake & Output 06/12/20 06/13/20 06/13/20 22:59 06:59 14:59 Intake Total 2890 240 Output Total 775 Balance 2890 -775 240 Lab Results Last 24 Hours: Laboratory Results - last 24 hr 06/10/20 06/12/20 06/12/20 Range/Units 19:58 20:02 20:02 WBC (4.5-11.0) K/uL RBC (4.30-5.90) M/uL Hgb 8.9 L (12.0-15.0) g/dL Hct 27.6 L (40.0-54.0) % MCV (80-98) fL MCH (27-31) pg MCHC (32-36) % Plt Count (150-400) K/uL Neut % (Auto) (36-66) % Lymph % (Auto) (24-44) % [place] % (Auto) (2-6) % Eos % (Auto) (2-4) % Baso % (Auto) (0-1) % Percent Retic 3.9 H (0.5-1.5) % Sodium 137 L (140-148) mmol/L Potassium 3.3 L (3.6-5.2) mmol/L Chloride 103 (100-108) mmol/L Carbon Dioxide 25 (21-32) mmol/L Anion Gap 12.3 (5.0-14.0) mmol/L BUN 6 L (7-18) mg/dL Creatinine 0.9 (0.8-1.3) mg/dL Est Cr Clr Drug Dosing 79.04 mL/min Estimated GFR (MDRD) > 60 (>60) Glucose 122 H (74-106) mg/dL Calcium 8.3 L (8.5-10.1) mg/dL Total Bilirubin 0.3 (0.2-1.0) mg/dL AST 18 (15-37) U/L ALT 38 (12-78) U/L Alkaline Phosphatase 53 (46-116) U/L Total Protein 5.6 L (6.4-8.2) g/dL Albumin 2.5 L (3.4-5.0) g/dL Globulin 3.1 (2.3-3.5) g/dL Albumin/Globulin Ratio 0.8 L (1.2-2.2) Crossmatch See Detail Crossmatch IS Only See Detail 06/13/20 Range/Units 05:30 WBC 8.6 (4.5-11.0) K/uL RBC 3.14 L (4.30-5.90) M/uL Hgb 9.4 L (12.0-15.0) g/dL Hct 28.7 L (40.0-54.0) % MCV 91 (80-98) fL MCH 30 (27-31) pg MCHC 33 (32-36) % Plt Count 405 H (150-400) K/uL Neut % (Auto) 56 (36-66) % Lymph % (Auto) 30 (24-44) % [place] % (Auto) 12 H (2-6) % Eos % (Auto) 2 (2-4) % Baso % (Auto) 0 (0-1) % Percent Retic (0.5-1.5) % Sodium (140-148) mmol/L Potassium (3.6-5.2) mmol/L Chloride (100-108) mmol/L Carbon Dioxide (21-32) mmol/L Anion Gap (5.0-14.0) mmol/L BUN (7-18) mg/dL Creatinine (0.8-1.3) mg/dL Est Cr Clr Drug Dosing mL/min Estimated GFR (MDRD) (>60) Glucose (74-106) mg/dL Calcium (8.5-10.1) mg/dL Total Bilirubin (0.2-1.0) mg/dL AST (15-37) U/L ALT (12-78) U/L Alkaline Phosphatase (46-116) U/L Total Protein (6.4-8.2) g/dL Albumin (3.4-5.0) g/dL Globulin (2.3-3.5) g/dL Albumin/Globulin Ratio (1.2-2.2) Crossmatch Crossmatch IS Only Med Orders - Current: Current Medications Barium Sulfate (E-Z-Hd) 680 gm PO . DIRECTED PRN PRN Reason: RADIOLOGY EXAM Stop: 06/14/20 10:08 Last Admin: 06/13/20 11:05 Dose: 340 gm Documented by: Sodium Chloride (Normal Saline) 1,000 mls @ 50 mls/hr IV ASDIRECTED [facility] Last Admin: 06/11/20 21:08 Dose: 50 mls/hr Documented by: Pantoprazole Sodium (Protonix) 40 mg PO BIDAC [facility] Last Admin: 06/13/20 08:28 Dose: 40 mg Documented by: Discontinued Medications Bisacodyl (Dulcolax) 10 mg PO ONETIME ONE Stop: 06/12/20 11:01 Last Admin: 06/12/20 15:19 Dose: 10 mg Documented by: Bisacodyl (Dulcolax) 10 mg PO ONETIME ONE Stop: 06/12/20 17:01 Last Admin: 06/12/20 17:38 Dose: 10 mg Documented by: Fentanyl (Sublimaze) Confirm Administered Dose 100 mcg .ROUTE .STK-MED ONE Stop: 06/11/20 06:45 Fentanyl (Sublimaze) Confirm Administered Dose 100 mcg .ROUTE .STK-MED ONE Stop: 06/13/20 07:01 Midazolam HCl (Versed 1 Mg/Ml) Confirm Administered Dose 2 mg .ROUTE .STK-MED ONE Stop: 06/13/20 07:02 Octreotide Acetate (Sandostatin) 50 mcg IVPUSH ONETIME ONE Stop: 06/10/20 20:25 Last Admin: 06/10/20 20:54 Dose: 50 mcg Documented by: Pantoprazole Sodium (Protonix Iv) 40 mg IVPUSH ONETIME ONE Stop: 06/10/20 19:53 Last Admin: 06/10/20 20:17 Dose: 40 mg Documented by: Polyethylene Glycol (Miralax) 238 gm PO ONETIME ONE Stop: 06/12/20 14:01 Last Admin: 06/12/20 15:17 Dose: 238 gm Documented by: Propofol (Diprivan 20 Ml) Confirm Administered Dose 200 mg .ROUTE .STK-MED ONE Stop: 06/11/20 06:45 Propofol (Diprivan 20 Ml) Confirm Administered Dose 200 mg .ROUTE .STK-MED ONE Stop: 06/13/20 07:02 Propofol (Diprivan 20 Ml) Confirm Administered Dose 200 mg .ROUTE .STK-MED ONE Stop: 06/13/20 07:29 - Exam General: Alert, Oriented HEENT: Pupils Equal, Pupils Reactive, EOMI, Mucous Membr. Moist/[place] Neck: Supple Lungs: Clear to Auscultation, Normal Respiratory Effort Cardiovascular: Regular Rate, Regular Rhythm GI/Abdominal Exam: Normal Bowel Sounds, Soft, Non-Tender, No Organomegaly, No Distention, No Abnormal Bruit, No Mass, Pelvis Stable Extremities: Normal Inspection, Normal Range of Motion, Non-Tender, No Pedal Edema, Normal Capillary Refill Peripheral Pulses: 1+: Radial (L), Radial (R) Skin: Warm, Dry, Intact Neurological: No New Focal Deficit Psy/Mental Status: Alert, Normal Affect, Normal Mood Sepsis Event Note - Evaluation Sepsis Screening Result: No Definite Risk - Focused Exam Vital Signs: Vital Signs Temp Pulse Resp BP BP Pulse Ox 06/13/20 11:15 97.5 F 81 16 137/61 98 06/13/20 09:30 96.5 F L 70 16 138/54 L 98 06/13/20 09:00 97 F 73 16 134/66 98 06/13/20 08:45 97 F 66 16 134/59 L 98 06/13/20 08:32 97.1 F 66 16 131/59 L 98 06/13/20 08:20 97 F 67 16 131/59 L 98 06/13/20 08:10 97.0 F 75 128/61 06/13/20 08:05 66 16 114/60 99 06/13/20 08:00 66 16 114/55 L 99 06/13/20 07:56 67 14 108/57 L 99 06/13/20 07:50 97.0 F 68 14 113/58 L 98 06/13/20 05:28 97.9 F 75 16 177/64 H 100 - Problem List Review Problem List Initiated/Reviewed/Updated: Yes - My Orders Last 24 Hours: My Active Orders 06/13/20 10:07 Barium Sulfate [E-Z-Hd] 680 gm PO . DIRECTED PRN 06/13/20 Lunch Regular Diet [DIET] 06/14/20 05:11 CBC WITH AUTO DIFF [HEME] DAILY - Plan Plan:: Assessment/plan: #1. GI blood loss with anemia: His hemoglobin this morning was 9.4.He had a negative Colonoscopy and a negative UGI with a small bowel follow- through. A capsule endoscopy will be done in [facility] A reticulocyte count wad 3%. #2. Hypertension: His blood pressure is stable at present time slightly elevated above what closely but not give medication at the present time. #3. Status post left shoulder surgery: This is not an acute problem at the present time. He is being discharged in stable condition and to return for blood if there is an acute bleed. He is not to take ASA or Motrin.
--- NOTE | 2020-06-13 14:43 | PCM.DCSUM1 ---
Discharge Summary - Hospital Course Brief History: Admitted from home after having GI blood loss. Hb initally was 16 grams 3 weeks ago and was 10.7 in the morning the day of admission. He was discharged home in a stable condition. That evening he had another bleed and bled down to 7.9 and was in the ER and was admitted. Diagnosis: Stroke: No - Discharge Data Discharge Date: 06/13/20 Discharge Disposition: Home, Self-Care 01 Condition: Good - Referral to Home Health Primary Care Physician: Daniele Blankenship Sr, MD - Patient Summary/Data Operative Procedure(s) Performed: EGD which showed a Antral ulcer but not active bleeding. He also had a colonoscopy and a UGI with small-bowel folow-through which was also negative. Hospital Course: After admission he received in total 2 units of blood and Hb went up to 9.4. Retic. count was 3% and platelets were 405,000 While in the hospital he had EGD which showed a Antral ulcer but not active bleeding. His plts. were 405,000. He also had a colonoscopy and a UGI with small-bowel follow-through which were also negative. He is being discharged in stable condition and to return for blood if there is an acute bleed. He is not to take ASA or Motrin. - Discharge Plan Home Medications: Home Meds Metoprolol Succinate [Toprol XL 50mg] 50 mg PO BID 12/16/19 [History] Testosterone Cypionate [Depo-Testosterone] 50 mg IM ASDIRECTED 12/16/19 [History] atorvaSTATin [Lipitor] 10 mg PO DAILY 12/16/19 [History] Aspirin 325 mg PO BID 05/23/20 [History] Doxazosin Mesylate [Cardura] 2 mg PO DAILY 06/10/20 [History] Forms: ED Department Discharge Referrals: Daniele Blankenship Sr, MD [Primary Care Provider] - - Discharge Summary/Plan Comment DC Time >30 min.: No Discharge Summary/Plan Comment: Assessment/plan: #1. GI blood loss with anemia: His hemoglobin this morning was 9.4.He had a negative Colonoscopy and a negative UGI with a small bowel follow- through. A capsule endoscopy will be done in [facility] A reticulocyte count wad 3%. #2. Hypertension: His blood pressure is stable at present time slightly elevated above what closely but not give medication at the present time. #3. Status post left shoulder surgery: This is not an acute problem at the present time. He is being discharged in stable condition and to return for blood if there is an acute bleed. He is not to take ASA or Motrin. A capsule endoscopy will be done in [facility] - General Info Functional Status: Reports: Pain Controlled - Review of Systems General: Reports: No Symptoms HEENT: Reports: No Symptoms Pulmonary: Reports: No Symptoms Cardiovascular: Reports: No Symptoms Gastrointestinal: Reports: No Symptoms Genitourinary: Reports: No Symptoms Musculoskeletal: Reports: No Symptoms Skin: Reports: No Symptoms Neurological: Reports: No Symptoms Psychiatric: Reports: No Symptoms - Patient Data Vitals - Most Recent: Last Vital Signs Temp 97.5 F 06/13/20 11:15 Pulse 81 06/13/20 11:15 Resp 16 06/13/20 11:15 BP 137/61 06/13/20 11:15 Pulse Ox 98 06/13/20 11:15 Weight - Most Recent: 210 lb 6.406 oz I&O - Last 24 hours: Intake & Output 06/12/20 06/13/20 06/13/20 22:59 06:59 14:59 Intake Total 2890 240 Output Total 775 Balance 2890 -775 240 Lab Results - Last 24 hrs: Laboratory Results - last 24 hr 06/10/20 06/12/20 06/12/20 Range/Units 19:58 20:02 20:02 WBC (4.5-11.0) K/uL RBC (4.30-5.90) M/uL Hgb 8.9 L (12.0-15.0) g/dL Hct 27.6 L (40.0-54.0) % MCV (80-98) fL MCH (27-31) pg MCHC (32-36) % Plt Count (150-400) K/uL Neut % (Auto) (36-66) % Lymph % (Auto) (24-44) % Riley % (Auto) (2-6) % Eos % (Auto) (2-4) % Baso % (Auto) (0-1) % Percent Retic 3.9 H (0.5-1.5) % Sodium 137 L (140-148) mmol/L Potassium 3.3 L (3.6-5.2) mmol/L Chloride 103 (100-108) mmol/L Carbon Dioxide 25 (21-32) mmol/L Anion Gap 12.3 (5.0-14.0) mmol/L BUN 6 L (7-18) mg/dL Creatinine 0.9 (0.8-1.3) mg/dL Est Cr Clr Drug Dosing 79.04 mL/min Estimated GFR (MDRD) > 60 (>60) Glucose 122 H (74-106) mg/dL Calcium 8.3 L (8.5-10.1) mg/dL Total Bilirubin 0.3 (0.2-1.0) mg/dL AST 18 (15-37) U/L ALT 38 (12-78) U/L Alkaline Phosphatase 53 (46-116) U/L Total Protein 5.6 L (6.4-8.2) g/dL Albumin 2.5 L (3.4-5.0) g/dL Globulin 3.1 (2.3-3.5) g/dL Albumin/Globulin Ratio 0.8 L (1.2-2.2) Crossmatch See Detail Crossmatch IS Only See Detail 06/13/20 Range/Units 05:30 WBC 8.6 (4.5-11.0) K/uL RBC 3.14 L (4.30-5.90) M/uL Hgb 9.4 L (12.0-15.0) g/dL Hct 28.7 L (40.0-54.0) % MCV 91 (80-98) fL MCH 30 (27-31) pg MCHC 33 (32-36) % Plt Count 405 H (150-400) K/uL Neut % (Auto) 56 (36-66) % Lymph % (Auto) 30 (24-44) % Riley % (Auto) 12 H (2-6) % Eos % (Auto) 2 (2-4) % Baso % (Auto) 0 (0-1) % Percent Retic (0.5-1.5) % Sodium (140-148) mmol/L Potassium (3.6-5.2) mmol/L Chloride (100-108) mmol/L Carbon Dioxide (21-32) mmol/L Anion Gap (5.0-14.0) mmol/L BUN (7-18) mg/dL Creatinine (0.8-1.3) mg/dL Est Cr Clr Drug Dosing mL/min Estimated GFR (MDRD) (>60) Glucose (74-106) mg/dL Calcium (8.5-10.1) mg/dL Total Bilirubin (0.2-1.0) mg/dL AST (15-37) U/L ALT (12-78) U/L Alkaline Phosphatase (46-116) U/L Total Protein (6.4-8.2) g/dL Albumin (3.4-5.0) g/dL Globulin (2.3-3.5) g/dL Albumin/Globulin Ratio (1.2-2.2) Crossmatch Crossmatch IS Only Med Orders - Current: Current Medications Barium Sulfate (E-Z-Hd) 680 gm PO . DIRECTED PRN PRN Reason: RADIOLOGY EXAM Stop: 06/14/20 10:08 Last Admin: 06/13/20 11:05 Dose: 340 gm Documented by: Sodium Chloride (Normal Saline) 1,000 mls @ 50 mls/hr IV ASDIRECTED [facility] Last Admin: 06/11/20 21:08 Dose: 50 mls/hr Documented by: Pantoprazole Sodium (Protonix) 40 mg PO BIDAC [facility] Last Admin: 06/13/20 08:28 Dose: 40 mg Documented by: Discontinued Medications Bisacodyl (Dulcolax) 10 mg PO ONETIME ONE Stop: 06/12/20 11:01 Last Admin: 06/12/20 15:19 Dose: 10 mg Documented by: Bisacodyl (Dulcolax) 10 mg PO ONETIME ONE Stop: 06/12/20 17:01 Last Admin: 06/12/20 17:38 Dose: 10 mg Documented by: Fentanyl (Sublimaze) Confirm Administered Dose 100 mcg .ROUTE .STK-MED ONE Stop: 06/11/20 06:45 Fentanyl (Sublimaze) Confirm Administered Dose 100 mcg .ROUTE .STK-MED ONE Stop: 06/13/20 07:01 Midazolam HCl (Versed 1 Mg/Ml) Confirm Administered Dose 2 mg .ROUTE .STK-MED ONE Stop: 06/13/20 07:02 Octreotide Acetate (Sandostatin) 50 mcg IVPUSH ONETIME ONE Stop: 06/10/20 20:25 Last Admin: 06/10/20 20:54 Dose: 50 mcg Documented by: Pantoprazole Sodium (Protonix Iv) 40 mg IVPUSH ONETIME ONE Stop: 06/10/20 19:53 Last Admin: 06/10/20 20:17 Dose: 40 mg Documented by: Polyethylene Glycol (Miralax) 238 gm PO ONETIME ONE Stop: 06/12/20 14:01 Last Admin: 06/12/20 15:17 Dose: 238 gm Documented by: Propofol (Diprivan 20 Ml) Confirm Administered Dose 200 mg .ROUTE .STK-MED ONE Stop: 06/11/20 06:45 Propofol (Diprivan 20 Ml) Confirm Administered Dose 200 mg .ROUTE .STK-MED ONE Stop: 06/13/20 07:02 Propofol (Diprivan 20 Ml) Confirm Administered Dose 200 mg .ROUTE .STK-MED ONE Stop: 06/13/20 07:29 - Exam General: Reports: Alert, Oriented HEENT: Reports: Pupils Equal, Pupils Reactive, EOMI, Mucous Membr. Moist/[place] Neck: Reports: Supple Lungs: Reports: Clear to Auscultation, Normal Respiratory Effort Cardiovascular: Reports: Regular Rate, Regular Rhythm GI/Abdominal Exam: Normal Bowel Sounds, Soft, Non-Tender, No Organomegaly, No Distention, No Abnormal Bruit, No Mass, Pelvis Stable Extremities: Normal Inspection, Normal Range of Motion, Non-Tender, No Pedal Edema, Normal Capillary Refill Skin: Reports: Warm, Dry, Intact Psy/Mental Status: Reports: Alert, Normal Affect, Normal Mood *Q Meaningful Use (DIS) - VTE *Q VTE Pharmacological Contraindications *Q: Active Hemorrhage
== END 2020-06-13 15:30 | disposition home or self-care (01) | DRG 378 ==
LOC: JP.ED 19:22 → JP.MS 20:58
PROVIDERS: ADMIT Internal Medicine; ATTEND Internal Medicine
PROC: 30233N1 Transfusion of Nonautologous Red Blood Cells into Peripheral Vein, Percutaneous Approach (ICD-10-PCS; principal; 2020-06-11)
PROC: 0DJ08ZZ Inspection of Upper Intestinal Tract, Via Natural or Artificial Opening Endoscopic (ICD-10-PCS; 2020-06-11)
PROC: 0DJD8ZZ Inspection of Lower Intestinal Tract, Via Natural or Artificial Opening Endoscopic (ICD-10-PCS; 2020-06-13)
DX: K92.2 Gastrointestinal hemorrhage, unspecified (principal); K92.1 Melena; T39.395A Adverse effect of other nonsteroidal anti-inflammatory drugs [NSAID], initial encounter; D62 Acute posthemorrhagic anemia; I10 Essential (primary) hypertension; H54.7 Unspecified visual loss; E78.00 Pure hypercholesterolemia, unspecified; Z96.643 Presence of artificial hip joint, bilateral; Z20.822 Contact with and (suspected) exposure to COVID-19; Z79.82 Long term (current) use of aspirin; Z79.899 Other long term (current) drug therapy; Z86.010 Personal history of colon polyps; Z79.01 Long term (current) use of anticoagulants; Z85.828 Personal history of other malignant neoplasm of skin; Z90.89 Acquired absence of other organs; Z98.890 Other specified postprocedural states
CPT/HCPCS: 36415; 85025; 85610; 86850 ×2; 86900 ×2; 86901; 86920 ×2; 86922 ×2; C9113; J2354; 36430; 74240; 74240-26; 74248; 80053; 85014; 85018; 85045; 96374; 96375; 99285; 99285-25; A9270-GY; J2250; J2704; J3010; J7030; P9016; U0002

== ENCOUNTER 2021-11-21 10:16 | Emergency (ER) | payer MEDICARE, OTHER ==
[2021-11-21] MEDS ORDERED: Bacitracin Oint 1 GM U/D Packet TOP ONE (12:06)
== END 2021-11-21 12:28 | disposition home or self-care (01) ==
LOC: JP.ED 10:16
DX: I83.892 Varicose veins of left lower extremity with other complications (principal); E78.00 Pure hypercholesterolemia, unspecified; I10 Essential (primary) hypertension; Z79.82 Long term (current) use of aspirin; Z79.899 Other long term (current) drug therapy
CPT/HCPCS: 99281; 99283

== ENCOUNTER 2022-07-16 06:52 | Day surgery (SDC) | payer MEDICARE, OTHER ==
[2022-07-16] MEDS ORDERED: Lidocaine 0.5% 50 ML SDV ONE (07:02)
[2022-07-16] MEDS ORDERED: Bupivacaine 0.5%/EPINEPHrine 1:200,000 50 ML MDV ONE (07:03)
[2022-07-16] MEDS ORDERED: Lidocaine 1% 50 ML MDV ONE (07:08)
[2022-07-16] MEDS ORDERED: fentaNYL 100 MCG/2 ML SDV ONE (07:10)
[2022-07-16] MEDS ORDERED: Propofol 200 MG/20 ML SDV ONE ×4 (07:10→09:52)
[2022-07-16] MEDS ORDERED: Midazolam 1 MG/ML 2 ML SDV ONE ×2 (07:10→09:27)
[2022-07-16] MEDS ORDERED: Acetaminophen 500 MG Tab PO ONE ×2 (07:15→07:45)
[2022-07-16] MEDS ORDERED: Dextrose 5%-Lactated Ringers 1,000 ML IV SCH (07:30)
[2022-07-16 07:45] LABS: ESTIMATED GFR 70 mL/min (>60)
[2022-07-16] MEDS ORDERED: ceFAZolin 2 GM in Sodium Chloride 0.9% 50 ML IV ONE (08:00)
[2022-07-16] MEDS ORDERED: Ketorolac 30 MG/ML SDV ONE (09:06)
[2022-07-16] MEDS ORDERED: Lidocaine 1% 50 ML MDV INJECT ONE ×2 (09:23)
[2022-07-16] MEDS ORDERED: Bupivacaine 0.5%/EPINEPHrine 1:200,000 50 ML MDV INJECT ONE ×2 (09:23)
[2022-07-16] MEDS ORDERED: Linezolid 600 MG/300 ML Premix Bag IRR ONE (10:16)
[2022-07-16] MEDS ORDERED: Ondansetron 4 MG/2 ML SDV IVPUSH PRN (12:44)
[2022-07-16] MEDS ORDERED: HYDROmorphone 2 MG Tab PO PRN (12:45)
[2022-07-16] MEDS ORDERED: HYDROmorphone 0.5 MG/0.5 ML Syringe IVPUSH PRN (12:46)
[2022-07-16] MEDS ORDERED: HYDROmorphone 1 MG/ML Syringe IV PRN (12:46)
[2022-07-16] MEDS: Pantoprazole 40 MG Vial IV SCH (13:52)
[2022-07-16] MEDS: Acetaminophen 500 MG Tab PO SCH ×2 (13:52→19:26)
[2022-07-16] MEDS: ceFAZolin 2 GM in Sodium Chloride 0.9% 50 ML IV SCH (16:03)
[2022-07-16] MEDS: Ibuprofen 600 MG Tab PO SCH ×2 (16:05→22:29)
[2022-07-16] MEDS: Metoprolol Tartrate 25 MG Tab PO SCH (21:38)
[2022-07-17] MEDS: ceFAZolin 2 GM in Sodium Chloride 0.9% 50 ML IV SCH ×2 (00:36→07:40)
[2022-07-17] MEDS: Acetaminophen 500 MG Tab PO SCH ×2 (02:53→07:42)
[2022-07-17] MEDS: Ibuprofen 600 MG Tab PO SCH ×2 (04:31→04:51)
[2022-07-17] MEDS ORDERED: Lactated Ringers 500 ML IV STA (06:46)
[2022-07-17] MEDS ORDERED: NIFEdipine 30 MG Tab.ER PO SCH (07:30)
[2022-07-17] MEDS: Metoprolol Tartrate 25 MG Tab PO SCH (08:40)
[2022-07-17] MEDS ORDERED: Aspirin 325 MG Tab.EC PO SCH (09:00)
[2022-07-17] MEDS: Pantoprazole 40 MG Vial IV SCH (09:17)
== END 2022-07-17 09:17 | disposition home or self-care (01) ==
LOC: JP.SDS 06:52 → JP.MS 11:30 → JP.SDS 07-17 09:17
PROVIDERS: ATTEND Surgery
DX: K40.30 Unilateral inguinal hernia, with obstruction, without gangrene, not specified as recurrent (principal); E78.5 Hyperlipidemia, unspecified; I10 Essential (primary) hypertension; I48.91 Unspecified atrial fibrillation; Z79.899 Other long term (current) drug therapy
CPT/HCPCS: 36415; 80053; 83735; 83880; 84100; 85025; 88302; 88342; A9270-GY; C1713; C1781; C9113; J0690; J1885; J2001; J2020; J2250; J2704; J3010; J3490; J7121

== ENCOUNTER 2025-03-28 12:53 | Emergency (ER) | payer MEDICARE ==
[2025-03-28] MEDS: Ondansetron 4 MG/2 ML SDV IVPUSH ONE (13:36)
[2025-03-28 13:37] LABS: BASOPHILS PERCENT AUTO 0.2 % (0.1-1.3); EOSINOPHILS ABSOLUTE AUTO 0.03 K/uL (0.00-0.40); EOSINOPHILS PERCENT AUTO 0.3 % (0.0-5.4); IMMATURE GRAN ABSOLUTE AUTO 0.04 K/uL (0.00-0.23); IMMATURE GRAN PERCENT AUTO 0.5 % (0.0-0.7); LYMPHOCYTES ABSOLUTE AUTO 0.41 K/uL (0.8-3.3); LYMPHOCYTES PERCENT AUTO 4.8 % (11.4-47.7); MONOCYTES ABSOLUTE AUTO 0.48 K/uL (0.20-0.90); MONOCYTES PERCENT AUTO 5.6 % (3.3-12.6); NEUTROPHILS ABSOLUTE AUTO 7.60 K/uL (1.0-7.6); NEUTROPHILS PERCENT AUTO 88.6 % (40.0-78.1); PLATELET COUNT,PLT 163 K/uL (130-375); RED BLOOD CELL COUNT 5.51 M/uL (4.14-5.76); WHITE BLOOD CELL COUNT,WBC 8.6 K/uL (3.2-11.0)
[2025-03-28 13:38] LABS: BASOPHILS ABSOLUTE AUTO 0.02 K/uL (0.00-0.10)
[2025-03-28] MEDS: Ketorolac 30 MG/ML SDV IVPUSH ONE (13:44)
[2025-03-28 13:56] LABS: APPEARANCE,URINE CLEAR (CLEAR); GLUCOSE,URINE NEGATIVE (NEGATIVE); OCCULT BLOOD,URINE MODERATE (NEGATIVE)
[2025-03-28 14:02] LABS: LACTIC ACID 0.9 mmol/L (0.4-2.0)
[2025-03-28 14:07] LABS: SQUAMOUS EPITHELIAL CELLS,UR FEW /HPF
[2025-03-28 14:09] LABS: UROTHELIAL CELLS,URINE RARE /HPF
[2025-03-28 14:11] LABS: A/G RATIO 1.2 (1.2-2.2); ALANINE AMINOTRANSFERASE,ALT 24 U/L (12-78); ASPARTATE AMNIOTRANSFERASE,AST 15 U/L (15-37); BILIRUBIN TOTAL 0.7 mg/dL (0.2-1.0); BLOOD UREA NITROGEN,BUN 16 mg/dL (7-18); CARBON DIOXIDE,CO2 22 mmol/L (21-32); CHLORIDE,CL 102 mmol/L (100-108); CREATININE 1.1 mg/dL (0.8-1.3); EST CRCL DRUG DOSING (CG) 56.22 mL/min; ESTIMATED GFR 68 mL/min (>60); GLUCOSE RANDOM 119 mg/dL (74-106); POTASSIUM,K 4.0 mmol/L (3.6-5.2); PROTEIN TOTAL,TP 6.9 g/dL (6.4-8.2); SODIUM,NA 136 mmol/L (140-148)
[2025-03-28] MEDS: Sodium Chloride 0.9% 10 ML Syringe FLUSH ONE (14:39)
[2025-03-28] MEDS: Iopamidol 612 MG/ML 100 ML Bottle IV PRN (14:39)
[2025-04-01 23:03] LABS: OVA AND PARASITE,FECAL INTERP Negative (Negative)
== END 2025-03-28 16:40 | disposition home or self-care (01) ==
LOC: JP.ED 12:53
DX: K52.9 Noninfective gastroenteritis and colitis, unspecified (principal); I10 Essential (primary) hypertension; E78.00 Pure hypercholesterolemia, unspecified; Z79.82 Long term (current) use of aspirin; Z79.899 Other long term (current) drug therapy
CPT/HCPCS: 36415; 74177; 80053; 81001; 83605; 83690; 85025; 86140; 87046; 87177; 87209; 87427; 87493; 93005; 93010; 96361; 96374; 96375; 99284; J2405; J2470; J7030; Q9967; J1885